=== PATIENT | female | born 1935 | race Caucasian/White ===

== ENCOUNTER → 2016-12-22 | Outpatient (CLI) | payer OTHER | LOC: BMCIMAGING 15:47 | PROVIDERS: ATTEND Urology | DX: N20.0 Calculus of kidney (principal) ==

== ENCOUNTER → 2017-03-23 | Outpatient (CLI) | payer OTHER | LOC: BMCIMAGING 08:58 | PROVIDERS: ATTEND Internal Medicine | DX: K76.9 Liver disease, unspecified (principal); N20.0 Calculus of kidney ==